=== PATIENT | male | born 1975 | race African-American/Black ===

== ENCOUNTER 2024-10-08 06:59 | Emergency (ER) | payer SELFPAY ==
[2024-10-08] MEDS ORDERED: Sodium Chloride 0.9% 10 ML Syringe FLUSH PRN (07:48)
[2024-10-08] MEDS ORDERED: Sodium Chloride 0.9% 20 ML SDV IV PRN (07:48)
[2024-10-08] MEDS ORDERED: Sodium Chloride 0.9% 2.5 ML Syringe FLUSH PRN (07:48)
[2024-10-08 08:21] LABS: BASOPHILS ABSOLUTE AUTO 0.13 K/uL (0.00-0.20); BASOPHILS PERCENT AUTO 1.3 % (0.0-1.0); EOSINOPHILS ABSOLUTE AUTO 0.22 K/uL (0.00-0.45); EOSINOPHILS PERCENT AUTO 2.3 % (0.0-6.0); HEMATOCRIT 45.1 % (42.0-52.0); HEMOGLOBIN 14.9 g/dL (14.0-18.0); IMMATURE GRAN ABSOLUTE AUTO 0.03 K/uL (0.00-0.05); IMMATURE GRAN PERCENT AUTO 0.3 % (0.0-0.4); LYMPHOCYTES ABSOLUTE AUTO 3.05 K/uL (1.00-4.80); LYMPHOCYTES PERCENT AUTO 31.3 % (24.0-44.0); MEAN CORPUSCULAR HEMOGLOBIN 29.6 pg (28.0-32.0); MEAN CORPUSCULAR VOLUME 89.7 fL (83.0-99.0); MEAN PLATELET VOLUME 10.2 fL (9.4-12.4); MONOCYTES PERCENT AUTO 7.2 % (0.0-8.0); NEUTROPHILS ABSOLUTE AUTO 5.62 K/uL (1.80-7.70); NEUTROPHILS PERCENT AUTO 57.6 % (41.0-71.0); PLATELET COUNT,PLT 302 K/uL (150-400); RED BLOOD CELL COUNT 5.03 M/uL (4.52-5.90); WHITE BLOOD CELL COUNT,WBC 9.75 K/uL (3.9-11.3)
[2024-10-08 08:34] LABS: APPEARANCE,URINE CLEAR; BILIRUBIN,URINE NEGATIVE (NEGATIVE); COLOR,URINE YELLOW; GLUCOSE,URINE NEGATIVE (NEGATIVE); KETONES,URINE TRACE mg/dL (NEGATIVE); LEUKOCYTE ESTERASE,URINE NEGATIVE (NEGATIVE); NITRITE,URINE NEGATIVE (NEGATIVE); OCCULT BLOOD,URINE NEGATIVE (NEGATIVE); PH,URINE 6.5 (5.0-8.0); PROTEIN,URINE TRACE mg/dL (NEGATIVE); UROBILINOGEN,URINE 0.2 EU/dL (<2.0)
[2024-10-08] MEDS: Albuterol/Ipratropium 3.0-0.5 MG/3 ML Neb Soln NEB ONE (08:43)
[2024-10-08 08:45] LABS: BACTERIA,URINE RARE (NEGATIVE); EPITHELIAL CELLS,URINE NOT SEEN (NONE-FEW); MUCUS,URINE LIGHT (NONE-MOD); RBC,URINE 0-2 (0-2/HPF); WBC,URINE 0-2 (0-5/HPF)
[2024-10-08 09:12] LABS: CORONAVIRUS COVID-19 NAA NEGATIVE (NEGATIVE); INFLUENZA A NAA NEGATIVE (NEGATIVE); INFLUENZA B NAA NEGATIVE (NEGATIVE)
[2024-10-08 09:14] LABS: ALBUMIN 3.7 g/dL (3.4-5.0); BILIRUBIN TOTAL 0.8 mg/dL (0.2-1.0); CALCIUM 8.8 mg/dL (8.5-10.1); CARBON DIOXIDE,CO2 30.2 mmol/L (21.0-32.0); CREATININE 1.2 mg/dL (0.8-1.3); EST CRCL DRUG DOSING (CG) 78.44 mL/min; MAGNESIUM 1.8 mg/dL (1.8-2.4); POTASSIUM,K 4.2 mmol/L (3.5-5.1); PROTEIN TOTAL,TP 7.3 g/dL (6.4-8.2)
== END 2024-10-08 10:28 | disposition home or self-care (01) ==
LOC: MW.ED 06:59
DX: J40 Bronchitis, not specified as acute or chronic (principal); Z79.899 Other long term (current) drug therapy
CPT/HCPCS: 0240U; 36415; 71046; 80053; 81001; 83735; 83880; 84484; 85025; 93005; 94640; 99284; J7620; 93010; A9270-GY